=== PATIENT | female | born 1950 | race Caucasian/White ===

== ENCOUNTER 2016-09-09 05:28 | Day surgery (SDC) | payer OTHER ==
[~2016-09-09] VITALS: Ht 162.6 cm; Wt 79.8 kg
[2016-09-09] MEDS ORDERED: METO100T14 PO (06:46)
[2016-09-09] MEDS ORDERED: METF500T PO (06:46)
[2016-09-09] MEDS ORDERED: SYN.1 PO (06:47)
[2016-09-09] MEDS ORDERED: GLIP5TER PO (06:47)
[2016-09-09] MEDS ORDERED: ceFAZolin 1,000 MG VIAL ONE (08:42)
[2016-09-09] MEDS ORDERED: BUPIVACAINE-MPF/EPI 0.25% 30 ML VIAL INJ ONE (08:42)
[2016-09-09] MEDS ORDERED: HYDROmorphone PFS 2 MG/ML SYR ONE (11:02)
[2016-09-09] MEDS ORDERED: fentaNYL 0.05 MG/ML VIAL ONE (11:02)
[2016-09-09] MEDS ORDERED: BUPIVACAINE-MPF 0.25% 30 ML VIAL INJ ONE (11:22)
[2016-09-09] MEDS ORDERED: ONDANSETRON 4 MG/2 ML VIAL ONE (11:25)
[2016-09-09] MEDS ORDERED: PHENYLEPHRINE 10 MG/ML VIAL ONE (11:25)
[2016-09-09] MEDS ORDERED: KETOROLAC 15 MG/ML VIAL ONE (11:25)
[2016-09-09] MEDS ORDERED: GLYCOPYRROLATE 0.2 MG/ML VIAL ONE (11:25)
[2016-09-09] MEDS ORDERED: DESFLURANE 240 ML BTL INH ONE (11:25)
[2016-09-09] MEDS ORDERED: PROPOFOL 200 MG/20 ML VIAL IV ONE (11:25)
[2016-09-09] MEDS ORDERED: ROCURONIUM 50 MG/5 ML VIAL IV ONE (11:25)
[2016-09-09] MEDS ORDERED: HYDROmorphone 1 MG/ML AMP IVP PRN ×2 (11:50→13:00)
[2016-09-09] MEDS ORDERED: ONDANSETRON 4 MG/2 ML VIAL IVP PRN (11:50)
[2016-09-09] MEDS ORDERED: BLOOD GLUCOSE MONITORING 1 DEV DEV FS SCH (12:09)
[2016-09-09] MEDS ORDERED: MORPHINE SULFATE 4 MG/ML SYR IV PRN (13:00)
[2016-09-09] MEDS ORDERED: ONDANSETRON 4 MG/2 ML VIAL IV PRN (13:00)
[2016-09-09] MEDS ORDERED: HYDROcodone/APAP 5/325 MG 1 TAB TAB PO PRN (13:00)
[2016-09-09] MEDS ORDERED: MORPHINE SULFATE 2 MG/ML SYR IVP PRN (13:00)
--- NOTE | 2016-09-09 13:55 | NUR ---
RECEIVED PT FROM PACU S/P REPAIR OF PERIUMBILICAL HERNIA WITH MESH. PT ALERT AWAKE ALERT ORIENTED X4.NO SOB NOTED. CHEST CLEAR. NO COMPLAINTS OF PAIN AT THIS TIME. IVF NOTED ON RIGHT HAND, PATENT AND INTACT. ABDOMEN SOFT. ABDOMINAL INCISION DRESSING DRY AND INTACT. SCD IN PLACE. INSTRUCTED PT TO CALL FOR ASSISTANCE. OFFERED ICE CHIPS. ENCOURAGED PT TO VOID. DO DEEP BREATHING EXERCISES. PT VERBALIZED UNDERSTANDING. WILL CONTINUE TO MONITOR PT POST OP.
[2016-09-09 14:00] VITALS: BP 97/65
[2016-09-09 14:15] VITALS: BP 98/62
[2016-09-09 14:30] VITALS: BP 99/60
[2016-09-09 14:45] VITALS: BP 96/62
--- NOTE | 2016-09-09 15:00 | NUR ---
PT TOLERATED ICE CHIPS. NO NAUSEA AND VOMITING. WILL SERVE JELLO AND ICE WATER. WILL MONITOR.
[2016-09-09 16:37] VITALS: BP 103/67
[2016-09-09] MEDS ORDERED: ACET-2869 PO (16:37)
--- NOTE | 2016-09-09 17:00 | NUR ---
PT VERBALIZED SHE NEEDS TO GO TO THE BATHROOM. WAS ABLE TO AMBULATE WITH MINIMAL ASSISTANCE. PT ABLE TO VOID. DENIES ANY PAIN OR DISCOMFORT. ACTIVITY TOLERATED WELL.
--- NOTE | 2016-09-09 17:30 | NUR ---
PT STATED SHE IS READY TO GO HOME. VITAL SIGNS STABLE.DISCHARGE INSTRUCTIONS AND PRESCRIPTION GIVEN TO PT WITH [employer] [id number], YOWILLIAMDA. PT VERBALIZED UNDERSTANDING. IV REMOVED. CANNULA INTACT. ARM BAND REMOVED. CALLED PT'S JOO, STATED HE'S GOING TO [employer] PT.
--- NOTE | 2016-09-09 17:50 | NUR ---
WHEELED OUT PT PER [employer]AS WORK[employer]. PT ON STABLE CONDITION. ABDOMINAL INCISION DRESSING DRY AND INTACT NO COMPLAINTS OF PAIN OR DISCOMFORT AT THIS TIME. DISCHARGED HOME WITH .
== END 2016-09-09 17:30 | disposition home or self-care (01) ==
LOC: MDS 05:28 → MMU 05:59 → MTU 15:31 → MDS 17:30
PROVIDERS: ATTEND Surgery
DX: K43.2 Incisional hernia without obstruction or gangrene (principal); I10 Essential (primary) hypertension; E11.9 Type 2 diabetes mellitus without complications; E66.9 Obesity, unspecified
CPT/HCPCS: 49560; 49568; 71010; 82948; 87081; 93005; C1781; J0690; J1170; J1885; J2370; J2405; J2704; J3010; J3490; J7060

== ENCOUNTER 2016-10-28 07:34 | Day surgery (SDC) | payer OTHER ==
[2016-10-28] VITALS (7 sets, daily range): BP systolic 103–132; BP diastolic 66–76
[~2016-10-28] VITALS: Ht 162.6 cm; Wt 81.6 kg
[~2016-10-28 07:34] MED LIST: GLUCOPHAGE500 MG PO; GLUCOTROL XL5 M1 PO; NORCO 325 MG-51 TAB PO; SYNTHROID0.1 MG PO; TOPROL XL100 MG PO
--- NOTE | 2016-10-28 07:59 | NUR ---
Patient ambulated to bed 05.
--- NOTE | 2016-10-28 08:02 | NUR ---
PATIENT PRESENTS TO ED WITH C/O UPPER RT BACK PAIN X 1 MONTH . PT STATES PAIN COMES AND GO .HX OF HTN/DM/HYPOTHYROID/HERNIA REPAIR; DENIES N/V/D; SKIN IS PINK/WARM/DRY; AAOX4 WITH EVEN AND STEADY GAIT; LUNGS CLEAR BL; HR EVEN AND REGULAR; PT DENIES ANY FEVER, CP, SOB, OR COUGH AT THIS TIME; PATIENT STATES PAIN OF 5/10 AT THIS TIME;PATIENT POSITIONED FOR COMFORT; HOB ELEVATED; BEDRAILS UP X2; BED DOWN. ER MD AT BEDSIDE.
--- NOTE | 2016-10-28 08:03 | NUR ---
Dr. Ortiz evaluating patient at bedside.
[2016-10-28] MEDS ORDERED: KETOROLAC 60 MG/2 ML VIAL IM ONE (08:05)
[2016-10-28] MEDS ORDERED: CLINDAMYCIN 600 MG in DEXTROSE 5% 50 ML IV ONE (08:20)
--- NOTE | 2016-10-28 08:25 | NUR ---
XRAY at bedside.`
[2016-10-28] MEDS ORDERED: CLINDAMYCIN 600 MG/4 ML VIAL ONE (08:41)
--- NOTE | 2016-10-28 09:36 | NUR ---
I ran into Dr. Waters; he will be calling shortly regarding patient admission.
--- NOTE | 2016-10-28 09:43 | NUR ---
PT RESTING ON BED;NO ACUTE DISTRESS NOTED;WILL CONTINUE TO MONITOR PT.
[2016-10-28] MEDS ORDERED: BUPIVACAINE-MPF 0.25% 30 ML VIAL INJ ONE (11:06)
--- NOTE | 2016-10-28 11:06 | NUR ---
PT WENT FOR HER SURGERY;NO ACUTE DISTRESS NOTED.
--- NOTE | 2016-10-28 11:06 | NUR ---
Brenda oroton in [facility] - 10/28/16 at 1106 by NIGEL PT WENT FOR HER SURGERY;NO ACUTE DISTRESS NOTED;WILL CONTINUE TO MONITOR PT.
--- NOTE | 2016-10-28 11:26 | NUR ---
Patient will be admitted to care of Dr Waters. [facility] Will go to room 111a. Belongings list completed. Report to Lovely Deleon.
[2016-10-28] MEDS ORDERED: PROPOFOL 200 MG/20 ML VIAL IV ONE (11:46)
[2016-10-28] MEDS ORDERED: MORPHINE SULFATE 4 MG/ML SYR ONE (12:04)
[2016-10-28] MEDS ORDERED: MIDAZOLAM 2 MG/2 ML VIAL ONE (12:04)
[2016-10-28] MEDS ORDERED: fentaNYL 0.05 MG/ML VIAL ONE (12:04)
[2016-10-28] MEDS ORDERED: MORPHINE SULFATE 2 MG/ML SYR IVP PRN ×2 (12:20→12:25)
[2016-10-28] MEDS ORDERED: MORPHINE SULFATE 4 MG/ML SYR IVP PRN ×2 (12:20)
[2016-10-28] MEDS ORDERED: METOCLOPRAMIDE 10 MG/2 ML INJ VIAL IVP PRN (12:20)
[2016-10-28] MEDS ORDERED: MIDAZOLAM 2 MG/2 ML VIAL IV ONE (12:20)
[2016-10-28] MEDS ORDERED: HYDROcodone/APAP 5/325 MG 1 TAB TAB PO PRN (12:25)
[2016-10-28] MEDS ORDERED: HYDROmorphone 1 MG/ML AMP IVP PRN (12:25)
[2016-10-28] MEDS ORDERED: ONDANSETRON 4 MG/2 ML VIAL IV PRN (12:25)
[2016-10-28] MEDS ORDERED: MORPHINE SULFATE 4 MG/ML SYR IV PRN (12:25)
[2016-10-28] MEDS ORDERED: ACETAMINOPHEN 325 MG TAB PO PRN (12:25)
--- NOTE | 2016-10-28 13:30 | NUR ---
RECEIVED PT AWAKE AND LYING ON BED, FROM OR ACCOMPANIED BY OR NURSE, S/P I&D FOR SEBACEOUS CYST ON RIGHT FLANK, AOX4, NO S/S OF RESPIRATORY DISTRESS, WITH IV ACCESS AT RIGHT AC 20G INFUSING NORMAL SALINE. WITH DRY AND INTACT DRESSING ON RIGHT FLANK, PT HAS NO COMPLAINTS OF PAIN. DISCUSSED PLAN OF CARE, PT VERBALIZED UNDERSTANDING. ORIENTED TO HOSPITAL ENVIRONMENT. CALL LIGHT WITHIN REACH, WILL CONTINUE TO MONITOR.
--- NOTE | 2016-10-28 15:23 | NUR ---
PT AWAKE, SITTING UP ON BED AND EATING SNACK, PT STATED SHE FEELS PAIN ON THE INCISION SITE BUT TOLERABLE. WILL CONTINUE TO MONITOR
[2016-10-28] MEDS ORDERED: AUGMENTIN 500 M1 TAB PO (16:19)
--- NOTE | 2016-10-28 17:20 | NUR ---
PT AWAKE TALKING TO SON AT BEDSIDE, NO COMPLAINTS OF PAIN, CALL LIGHT WITHIN REACH, WILL CONTINUE TO MONITOR
--- NOTE | 2016-10-28 18:05 | NUR ---
DISCHARGE PRESCRIPTIONS AND INSTRUCTIONS GIVEN, PT VERBALIZED UNDERSTANDING. EDUCATED PT AND SON ON WOUND CARE AND IMPORTANCE OF FOLLOW UP APPOINTMENT WITH DR LOVE. WOUND PICTURES TAKEN AND AFFIXED IN CHART. PT LEFT UNIT ON A WHEELCHAIR ACCOMPANIED BY SON IN STABLE CONDITION
== END 2016-10-28 18:05 | disposition home or self-care (01) ==
LOC: MED 07:34 → MTU 11:14 → UNDOADMIN 11:14 → MED 11:26 → MOR 11:26 → MTU 12:49 → MOR 18:05
PROVIDERS: ATTEND Surgery
DX: L08.89 Other specified local infections of the skin and subcutaneous tissue (principal); M79.9 Soft tissue disorder, unspecified; L72.3 Sebaceous cyst; I10 Essential (primary) hypertension; E11.9 Type 2 diabetes mellitus without complications; E66.9 Obesity, unspecified; L08.9 Local infection of the skin and subcutaneous tissue, unspecified
CPT/HCPCS: 11043; 11046; 36415; 71010; 80053; 82948; 85025; 85610; 85730; 87070; 87075; 87081; 87205; 93005; 96365; 96372; 99285; J1885; J2250; J2270; J2704; J3010; J3490; Q0092